=== PATIENT | female | born 2000 | race Caucasian/White ===

== ENCOUNTER 2021-06-08 21:14 | Emergency (ER) | payer OTHER ==
[~2021-06-08 21:14] MED LIST: LODINE CAP 300300 MG PO
[2021-06-08] MEDS ORDERED: IBUPROFEN600 MG PO (22:48)
== END 2021-06-08 23:30 | disposition home or self-care (01) ==
LOC: ER1 21:14
DX: S51.812A Laceration without foreign body of left forearm, initial encounter (principal); W26.9XXA Contact with unspecified sharp object(s), initial encounter; Y92.009 Unspecified place in unspecified non-institutional (private) residence as the place of occurrence of the external cause
CPT/HCPCS: 12001; 99283

== ENCOUNTER → 2021-10-24 | Outpatient (CLI) | payer OTHER ==
[~2021-10-24] MED LIST changes: +IBUPROFEN600 MG PO
== END ==
LOC: US 09:50
DX: R10.13 Epigastric pain (principal)
CPT/HCPCS: 76705